=== PATIENT | female | born 1995 | race Caucasian/White ===

== ENCOUNTER 2017-09-07 13:11 | Emergency (ER) | payer OTHER ==
[~2017-09-07] VITALS: Ht 175.3 cm; Wt 88.5 kg
[~2017-09-07 13:11] MED LIST: POLYMYXIN B/TMP10 ML OP
[2017-09-07 13:34] VITALS: BP 142/73
== END 2017-09-07 13:35 | disposition home or self-care (01) ==
LOC: M.ERS 13:11
DX: S93.401A Sprain of unspecified ligament of right ankle, initial encounter (principal); X50.3XXA Overexertion from repetitive movements, initial encounter; Y93.75 Activity, martial arts; Y92.89 Other specified places as the place of occurrence of the external cause; Y99.8 Other external cause status